=== PATIENT | female | born 1950 | race Two or more races ===

== ENCOUNTER 2017-08-11 19:03 | Inpatient (IN) | payer MEDICARE ==
[~2017-08-11] VITALS: Ht 165.1 cm; Wt 76.7 kg
[2017-08-11 22:20] VITALS: BP 169/81
[2017-08-11] MEDS ORDERED: DOCU100C36 PO (22:58)
[2017-08-11] MEDS ORDERED: HYDR-552 PO (22:58)
[2017-08-11] MEDS ORDERED: LORAZEPAM 0.5 MG TABLET PO PRN (23:00)
[2017-08-11] MEDS ORDERED: MAGNESIUM HYDROXIDE 30 ML UDC PO PRN (23:00)
[2017-08-11] MEDS ORDERED: MAG HYDROX/AL HYDROX/SIMETH 30 ML UDC PO PRN (23:00)
[2017-08-11] MEDS ORDERED: ACETAMINOPHEN 325 MG TABLET PO PRN (23:00)
--- NOTE | 2017-08-11 23:00 | NUR ---
GPS/CHIEF LIFESTYLE OFFICER ADMISSION NOTES: RECEIVED 67YR OLD FEMALE PT. ON A 5150 HOLD FOR DTS. PT. A/O X3. PT. GIVEN ADVISEMENT, ORIENTED TO UNIT POLICY AND PROTOCOLS AND ROUTINE. CONTRABAND AND BELONGINGS LOGGED AND TAKEN FROM PT. AND PLACED ON LOCKED CABINET AND SAFE. CALL ELIZABETH WITHIN REACH AND SAFETY ENVIRONMENT OBSERVED AT ALL TIMES. NO SI/HI AT THIS TIME. BED IN LOCKED POSITION. NO C/O PAIN OR DISCOMFORT AT THIS TIME. MEDICAL DR. HELMS AND PSYCH DR. LOPEZ NOTIFIED OF PT. ADMISSION TO UNIT. FAMILY NOTIFIED.
[2017-08-12 06:53] LABS: BASOPHILS % (AUTO) 0.5 % (0.0-2.0); HEMATOCRIT 37 % (33-45); HEMOGLOBIN 12.6 g/dL (11.5-14.8); LYMPHOCYTES # (AUTO) 1.2 /CMM (0.8-4.8); LYMPHOCYTES % (AUTO) 23.1 % (20.0-44.0); MEAN CORPUSCULAR HEMOGLOBIN 32 PG (26.0-33.0); MEAN CORPUSCULAR HGB CONC 34 g/dl (31.0-36.0); MEAN CORPUSCULAR VOLUME 94 fL (82-100); MONOCYTES # (AUTO) 0.7 /CMM (0.1-1.30); MONOCYTES % (AUTO) 13.8 % (2.0-12.0); NEUTROPHILS # (AUTO) 3.1 /CMM (1.8-8.9); NEUTROPHILS % (AUTO) 60.6 % (43.0-81.0); PLATELET COUNT (AUTO) 101 /CMM (150-450); RDW COEFFICIENT OF VARIATION 13.6 (11.5-15.0)
[2017-08-12 07:10] LABS: ALBUMIN 2.8 g/dL (3.4-5.0); BILIRUBIN,TOTAL 0.7 mg/dL (0.2-1.0); CALCIUM, SERUM 9.1 mg/dL (8.5-10.1); CREATININE 0.9 mg/dL (0.6-1.3); POTASSIUM 4.4 mmol/L (3.5-5.1); TOTAL PROTEIN, SERUM 6.5 g/dL (6.4-8.2)
[2017-08-12 07:29] LABS: CHOLESTEROL 181 mg/dL (<200); HDL CHOLESTEROL 93 mg/dL (40-60); LDL 78 mg/dL (0-99); TRIGLYCERIDES 45 mg/dL (30-150)
[2017-08-12 08:00] VITALS: BP 119/50
[2017-08-12 08:18] LABS: MAGNESIUM 1.7 mg/dL (1.8-2.4); PHOSPHORUS 4.2 mg/dL (2.5-4.9)
[2017-08-12 08:27] LABS: THYROID STIMULATING HORMONE 1.304 uIU/mL (0.358-3.74)
[2017-08-12] MEDS: DOCUSATE SODIUM 100 MG CAPSULE PO SCH ×2 (08:29→16:14)
[2017-08-12] MEDS ORDERED: LISI10TA5 PO (08:54)
[2017-08-12] MEDS ORDERED: MAGNESIUM OXIDE 400 MG TABLET PO ONE (10:30)
[2017-08-12] MEDS: ESCITALOPRAM OXALATE (10 MG) 10 MG TABLET PO SCH (11:53)
[2017-08-12 16:00] VITALS: BP 133/70
--- NOTE | 2017-08-12 17:56 | NUR ---
Initial Discharge Plan: Pt currently resides with her brother at [address] [place] [address] ([phone]). Per pt, she would like to return there until her niece finds her an apartment. SW will work with the pt and the MD regarding appropriate discharge plans. SW will form a safe and proper discharge plan.
[2017-08-12] MEDS: HYDROCODONE/APAP 5/325MG 1 EACH TABLET PO PRN (20:31)
--- NOTE | 2017-08-12 20:32 | NUR ---
PATIENT APPROACHED THE N. STATION, C/O PAIN RIGHT ARM AND RIGHT BREAST, 7/10 ON PAIN SCALE, NORCO TAB 5/325 MG TAB 1 PO GIVEN. SHE STATED THAT HER BLOOD PRESSURE IS INOCENTE BECAUSE HE IS UPSET, AFRAID AND NOT TRUSTING MALE DIRECTOR FUNERAL POINTING ON 2 MALE DIRECTOR FUNERAL WORKING TONIGHT. EXPLAINED TO HER THAT PAULO AND I WILL CHECK ON HER TONIGHT UNTIL 0730 AM SARIAH, NO MALE DIRECTOR FUNERAL WILL ENTER HER ROOM. PATIENT UNDERSTOOD INSTRUCTION. WENT TO BED.
[2017-08-12] MEDS: ZOLPIDEM TARTRATE 5 MG TABLET PO PRN (22:05)
[2017-08-12] MEDS: QUETIAPINE FUMARATE 25 MG TABLET PO SCH (22:05)
--- NOTE | 2017-08-12 22:06 | NUR ---
AMBIEN 5 MG TAB 1 PO GIVEN FOR SLEEP PER PATIENT'S REQUEST.
[2017-08-13 08:00] VITALS: BP 125/64
[2017-08-13] MEDS: ESCITALOPRAM OXALATE (10 MG) 10 MG TABLET PO SCH (08:05)
[2017-08-13] MEDS: DOCUSATE SODIUM 100 MG CAPSULE PO SCH ×3 (08:05→17:00)
--- NOTE | 2017-08-13 14:05 | NUR ---
AM RN NOTE Pt requesting for regular diet, called Dr. Brunson new order obtained noted and carried out.
[2017-08-13 16:00] VITALS: BP 131/75
[2017-08-13] MEDS: HYDROCODONE/APAP 5/325MG 1 EACH TABLET PO PRN (19:10)
[2017-08-13 20:00] VITALS: BP 150/88
[2017-08-13] MEDS: QUETIAPINE FUMARATE 25 MG TABLET PO SCH (22:27)
--- NOTE | 2017-08-14 00:27 | NUR ---
Pt has been anhedonic with flat affect & easily irritable but compliant/redirectable mostly.
[2017-08-14 08:00] VITALS: BP 143/89
[2017-08-14] MEDS: DOCUSATE SODIUM 100 MG CAPSULE PO SCH ×2 (08:36→16:13)
[2017-08-14] MEDS: ESCITALOPRAM OXALATE (10 MG) 10 MG TABLET PO SCH (08:36)
--- NOTE | 2017-08-14 13:00 | NUR ---
URINE SAMPLE COLLECTED AT CN REQUEST.
[2017-08-14 16:00] VITALS: BP 150/70
[2017-08-14 16:32] LABS: APPEARANCE,URINE CLEAR (CLEAR); BILIRUBIN,URINE NEGATIVE (NEGATIVE); BLOOD, URINE 2+ Ery/uL (NEGATIVE); COLOR,URINE YELLOW (YELLOW); KETONES,URINE NEGATIVE (NEGATIVE); LEUKOCYTE ESTERASE ,URINE 1+ (NEGATIVE); NITRITE, URINE NEGATIVE (NEGATIVE); PROTEIN,URINE NEGATIVE (NEGATIVE); UGLUCOSE NEGATIVE (NEGATIVE)
[2017-08-14 16:48] LABS: BACTERIA,URINE Few /HPF (None Seen); SQUAMOUS EPITHELIAL CELL,UR Moderate /HPF (None Seen)
--- NOTE | 2017-08-14 18:26 | NUR ---
RN CLOSING. PT RESTING IN BED READING. PT ENGAGING AND APPROPRIATE. PT CARING AND SUPPORTIVE OF OTHER CLIENTS WHEN IN COMMON AREA. ALL NURSE DUTIES ATTENDED TO AND PT WITHOUT CONCERN OR COMPLAINT AT THIS TIME.
[2017-08-14] MEDS: HYDROCODONE/APAP 5/325MG 1 EACH TABLET PO PRN (19:34)
[2017-08-14 20:22] VITALS: BP 157/66
[2017-08-14] MEDS: QUETIAPINE FUMARATE 25 MG TABLET PO SCH (21:14)
[2017-08-14 23:00] VITALS: BP 137/76
[2017-08-14] MEDS: SULFAMETH/TRIMETH 800/160 MG 1 UDTAB TABLET PO SCH (23:02)
[2017-08-15] MEDS: DOCUSATE SODIUM 100 MG CAPSULE PO SCH ×2 (08:24→16:12)
[2017-08-15] MEDS: ESCITALOPRAM OXALATE (10 MG) 10 MG TABLET PO SCH (08:26)
[2017-08-15] MEDS: SULFAMETH/TRIMETH 800/160 MG 1 UDTAB TABLET PO SCH ×2 (08:26→21:18)
[2017-08-15 08:48] VITALS: BP 149/75
--- NOTE | 2017-08-15 15:43 | NUR ---
gps keyseating machine set up operator: notes era fonseca (psychologist) here and interviewing pt at this time.
[2017-08-15 16:00] VITALS: BP 162/75
--- NOTE | 2017-08-15 19:30 | NUR ---
RN NOTES RECEIVED PATIENT IN BED AWAKE, AO X 3, ABLE TO MAKE NEEDS KNOWN. NO ACUTE DISTRESS NOTED. DENIES ANY PAIN AT THIS TIME. DENIES ANY SUICIDAL IDEATION. SAFETY REMINDERS GIVEN. ON LOW BED WITH BILATERAL UPPER SIDE RAILS UP. CALL ELIZABETH WITHIN EASY REACH. WILL CONTINUE TO MONITOR.
[2017-08-15 20:00] VITALS: BP 151/81
[2017-08-15] MEDS: QUETIAPINE FUMARATE 25 MG TABLET PO SCH (21:18)
[2017-08-15] MEDS: HYDROCODONE/APAP 5/325MG 1 EACH TABLET PO PRN (21:25)
--- NOTE | 2017-08-16 06:47 | NUR ---
RN NOTES PATIENT ASLEEP, EASILY AROUSABLE. RESPIRATIONS EVEN. NO SIGNS OF PAIN NOTED. DUE MED GIVEN WITH NO ASE NOTE. NEEDS ATTENDED. KEPT CLEAN, DRY, AND COMFORTABLE. SAFETY PRECAUTIONS AND COMFORT MEASURES IN PLACE. WILL GIVE REPORT TO DAY SHIFT FOR CONTINUITY OF CARE.
[2017-08-16] MEDS: DOCUSATE SODIUM 100 MG CAPSULE PO SCH ×2 (09:00→16:09)
[2017-08-16 09:04] VITALS: BP 151/76
[2017-08-16] MEDS: SULFAMETH/TRIMETH 800/160 MG 1 UDTAB TABLET PO SCH ×2 (09:20→21:27)
[2017-08-16] MEDS: ESCITALOPRAM OXALATE (10 MG) 10 MG TABLET PO SCH (09:20)
--- NOTE | 2017-08-16 10:24 | NUR ---
KISHA spoke to Scottie who is an RN at the [facility] about the pt missing an important appointment yesterday. KISHA will figure out a plan for the pt to continue her medical treatment.
--- NOTE | 2017-08-16 10:27 | NUR ---
KISHA called Erlinda ([phone]) at [facility] and left a voicemail about referring this pt.
--- NOTE | 2017-08-16 10:28 | NUR ---
SW called pt's brother, Otis ([phone]), and discussed the SW's current plan of transferring the pt to a SNF in [place]. The pt's brother then stated that he would be able to take the pt to her doctor's appointments from the facility.
[2017-08-16 16:00] VITALS: BP 148/80
--- NOTE | 2017-08-16 16:09 | NUR ---
GPS/RN PATIENT REFUSED COLACE BID DURING SHIFT.
--- NOTE | 2017-08-16 20:40 | NUR ---
GPS-RN PATIENT IS FEELING ANXIOUS AND REQUESTING FOR ATIVAN. VSS. ADMINISTERED ATIVAN 1MG PO ORDERED. WILL CONTINUE TO MONITOR.
[2017-08-16] MEDS: QUETIAPINE FUMARATE 25 MG TABLET PO SCH (21:27)
[2017-08-16] MEDS: HYDROCODONE/APAP 5/325MG 1 EACH TABLET PO PRN (22:10)
--- NOTE | 2017-08-16 22:10 | NUR ---
GPS-RN PATIENT C/O RIGHT BREAST PAIN RADIATING TO RIGHT SHOULDER ON A PAIN SCALE OF 7/10. ADMINISTERED NORCO 5/325MG PO ORDERED. WILL CONTINUE TO MONITOR.
[2017-08-17 08:00] VITALS: BP 129/68
[2017-08-17] MEDS: ESCITALOPRAM OXALATE (10 MG) 10 MG TABLET PO SCH (09:22)
[2017-08-17] MEDS: DOCUSATE SODIUM 100 MG CAPSULE PO SCH ×3 (09:22→17:34)
[2017-08-17] MEDS: SULFAMETH/TRIMETH 800/160 MG 1 UDTAB TABLET PO SCH ×2 (09:22→21:48)
[2017-08-17 16:33] VITALS: BP 140/75
--- NOTE | 2017-08-17 19:30 | NUR ---
GPS RN NOTE, RECEIVED PATIENT AWAKE AND IN BED, PATIENT HAS A COMPLAINT OF RIGHT BREASTS PAIN AT 8 OUT OF 10 AT THE PAIN . PATIENT IS DISPLAYING NO S/S OF APPARENT DISTRESS AT THIS TIME. PATIENT BREATHING IS UNLABORED WITH EQUAL RISE AND FALL OF THE CHEST. PATIENT IS ALERT AND ORIENTED X 3 ON ROOM AIR WITH A SPO2 95%. PATIENT IS MED COMPLIANT, DISORGANIZED, CONFUSED AT TIMES, AND NEEDS CONSTANT REORIENTATION. PATIENT DENIES SUICIDE IDEATIONS AND HOMICIDAL IDEATIONS AT THIS TIME. PATIENT ASSISTED WITH TURNING AND REPOSITIONING Q2 HR AND PRN FOR COMFORT AND CIRCULATION. PATIENT HAS NO NEEDS AT THIS TIME. PATIENT EDUCATED ON THE USE OF THE CALL ELIZABETH. PATIENT BED SIDE RAILS UP X 2 FOR SAFETY, BED LOCKED AND LOW WILL CONTINUE TO MONITOR AND MAINTAIN SAFETY Q15 MIN WITH THE HELP OF STAFF.
[2017-08-17] MEDS: HYDROCODONE/APAP 5/325MG 1 EACH TABLET PO PRN (20:00)
--- NOTE | 2017-08-17 20:00 | NUR ---
GPS RN NOTE, PATIENT HAS A COMPLAINT OF RIGHT BREAST PAIN AT 8 OUT 10 ON THE PAIN SCALE. PATIENT VITAL SIGNS ARE STABLE. GAVE NORCO 5-325 1 TAB PO TID PRN ORDERED. WILL REASSESS PAIN AND I WILL CONTINUE TO MONITOR THIS PATIENT.
[2017-08-17 20:22] VITALS: BP 157/86
[2017-08-17] MEDS: QUETIAPINE FUMARATE 25 MG TABLET PO SCH (21:48)
[2017-08-18 08:00] VITALS: BP 124/70
[2017-08-18] MEDS: DOCUSATE SODIUM 100 MG CAPSULE PO SCH ×2 (08:30→16:25)
[2017-08-18] MEDS: ESCITALOPRAM OXALATE (10 MG) 10 MG TABLET PO SCH (08:30)
[2017-08-18] MEDS: HYDROCODONE/APAP 5/325MG 1 EACH TABLET PO PRN (08:34)
--- NOTE | 2017-08-18 10:24 | NUR ---
SW spoke to Erlinda ([phone]) from [facility] and faxed a referral to [phone].
--- NOTE | 2017-08-18 10:25 | NUR ---
KISHA spoke to Mandie ([phone]) from [facility] and faxed a referral to [phone].
--- NOTE | 2017-08-18 11:19 | NUR ---
Mandie ([phone]) from [facility] called the SW and stated that the pt was not accepted to their facility. She then provided the SW with a suggestion.
--- NOTE | 2017-08-18 12:50 | NUR ---
SW spoke to Erlinda ([phone]) from [facility] who stated that the pt was denied due to certain requirements for SNFs.
--- NOTE | 2017-08-18 12:50 | NUR ---
SW reached out to Reynaldo ([phone]) who assists with placements for this pt.
[2017-08-18 16:00] VITALS: BP 145/89
[2017-08-18 20:00] VITALS: BP 160/90
[2017-08-18] MEDS: LATANOPROST EYE DROP 0.005% 2.5 ML BOTTLE EACHEYE SCH (20:51)
[2017-08-18] MEDS: QUETIAPINE FUMARATE 25 MG TABLET PO SCH (20:51)
[2017-08-18] MEDS: ZOLPIDEM TARTRATE 5 MG TABLET PO PRN (22:02)
[2017-08-19 08:00] VITALS: BP 134/74
[2017-08-19] MEDS: ESCITALOPRAM OXALATE (10 MG) 10 MG TABLET PO SCH (09:10)
[2017-08-19] MEDS: DOCUSATE SODIUM 100 MG CAPSULE PO SCH ×2 (09:10→17:44)
[2017-08-19] MEDS: BRIMONIDINE TARTRATE OPHT SOLN 5 ML BOTTLE EACHEYE SCH ×2 (11:03→17:44)
[2017-08-19] MEDS: HYDROCODONE/APAP 5/325MG 1 EACH TABLET PO PRN (12:53)
--- NOTE | 2017-08-19 12:53 | NUR ---
RN NOTES ADMINISTERED NARCO 5/325 MG PO PRN FOR RIGHT BREAST PAIN 09/30 PER PATIENT REQUEST, V/S TAKEN BP-130/70, P-70, ENCOURAGED TO INCREASE FLUID INTAKE. CONTINUED MONITORING.
--- NOTE | 2017-08-19 15:12 | NUR ---
Frank from [facility] came to assess the pt and figure out what her budget is like.
--- NOTE | 2017-08-19 15:17 | NUR ---
KISHA contacted Suzanna ([phone]) from a [facility] regarding this pt.
--- NOTE | 2017-08-19 15:30 | NUR ---
RN NOTES GET PATHOLOGY RESULT FROM [facility], AND FAXED TO DR VINCENT.
[2017-08-19 16:00] VITALS: BP 104/58
[2017-08-19 20:00] VITALS: BP 112/61
[2017-08-19] MEDS: LATANOPROST EYE DROP 0.005% 2.5 ML BOTTLE EACHEYE SCH (22:14)
[2017-08-19] MEDS: QUETIAPINE FUMARATE 25 MG TABLET PO SCH (22:14)
[2017-08-19] MEDS: HYDROCODONE/APAP 10/325MG 1 EA TABLET PO PRN (22:15)
[2017-08-19] MEDS: ZOLPIDEM TARTRATE 5 MG TABLET PO PRN (22:15)
[2017-08-20 08:00] VITALS: BP 118/60
[2017-08-20] MEDS: ESCITALOPRAM OXALATE (10 MG) 10 MG TABLET PO SCH (08:27)
[2017-08-20] MEDS: DOCUSATE SODIUM 100 MG CAPSULE PO SCH ×2 (08:28→16:04)
[2017-08-20] MEDS: BRIMONIDINE TARTRATE OPHT SOLN 5 ML BOTTLE EACHEYE SCH ×2 (08:31→16:04)
[2017-08-20] MEDS: ANASTROZOLE 1 MG TABLET PO SCH (14:36)
[2017-08-20 16:00] VITALS: BP 102/59
[2017-08-20 20:00] VITALS: BP 96/59
[2017-08-20] MEDS: LATANOPROST EYE DROP 0.005% 2.5 ML BOTTLE EACHEYE SCH (21:14)
[2017-08-20] MEDS: QUETIAPINE FUMARATE 25 MG TABLET PO SCH (21:14)
[2017-08-20] MEDS: HYDROCODONE/APAP 10/325MG 1 EA TABLET PO PRN (21:30)
[2017-08-21] MEDS: ZOLPIDEM TARTRATE 5 MG TABLET PO PRN (00:37)
[2017-08-21 08:00] VITALS: BP 129/85
[2017-08-21] MEDS: DOCUSATE SODIUM 100 MG CAPSULE PO SCH ×2 (08:30→16:37)
[2017-08-21] MEDS: ESCITALOPRAM OXALATE (10 MG) 10 MG TABLET PO SCH (08:30)
[2017-08-21] MEDS: ANASTROZOLE 1 MG TABLET PO SCH (08:30)
[2017-08-21] MEDS: BRIMONIDINE TARTRATE OPHT SOLN 5 ML BOTTLE EACHEYE SCH ×2 (08:39→17:45)
--- NOTE | 2017-08-21 09:28 | NUR ---
GPS RN NOTES: RECEIVED PATIENT IN BED ASLEEP BUT AROUSABLE TO NAME, AO X 3, ABLE TO MAKE NEEDS KNOWN. NO ACUTE DISTRESS NOTED. DENIES ANY PAIN AT THIS TIME. DENIES ANY SUICIDAL IDEATION. PATIENT UP ONLY FOR BREAKFAST WAS MED COMPLIANT, THEN BACK TO BED SAYING NEEDS MORE SLEEP. SAFETY REMINDERS GIVEN. ON LOW BED WITH BILATERAL UPPER SIDE RAILS UP. CALL ELIZABETH WITHIN EASY REACH. WILL CONTINUE TO MONITOR Q 15 MINUTES FOR SAFETY AND COMFORT.
--- NOTE | 2017-08-21 11:10 | NUR ---
GPS RN NOTE: PATIENT BECAME AGITATED IN DAY ROOM BECAUSE SHE WANTED TV TURNED DOWN AND TOOK REMOTE FROM INFORMATION SECURITY SYSTEMS INSTRUCTOR AND REFUSED TO GIVE BACK THEN THREW ON FLOOR AND WAS VERBALLY ABUSIVE WITH VAGUE THREATS TO DR. CLAYTON TO ANY STAFF WHO TRIED TO GIVE HER MEDICATION. 1: 1 FOR FIVE MINUTES WITH PATIENT TO ALLOW PATIENT TO VERBALIZE FEELINGS AND CONCERNS, PATIENT BECAME CALM AND APOLOGETIC, REFUSED PRN ATIVAN. SHE APOLOGIZED TO STAFF AND TO DR. CLAYTON FOR HER OUTBURST. ASKED PATIENT TO SPEAK TO RN IF SHE BEGINS TO FEEL AGITATED AGAIN AND WILL NOTIFY DR. CLAYTON IF BEHAVIOR CONTINUES. AT THIS TIME PATIENT IN DAY ROOM CALMLY WATCHING TV.
--- NOTE | 2017-08-21 11:35 | NUR ---
DR. CLAYTON REQUESTS TO BE NOTIFIED IF PATIENT HAS ANY FURTHER ANGRY OUTBURSTS WITH STAFF.
[2017-08-21 16:03] VITALS: BP 124/64
[2017-08-21] MEDS: HYDROCODONE/APAP 10/325MG 1 EA TABLET PO PRN (18:51)
[2017-08-21 20:33] VITALS: BP 110/61
[2017-08-21] MEDS: QUETIAPINE FUMARATE 25 MG TABLET PO SCH (21:07)
[2017-08-21] MEDS: LATANOPROST EYE DROP 0.005% 2.5 ML BOTTLE EACHEYE SCH (21:08)
--- NOTE | 2017-08-22 06:39 | NUR ---
GPS-RN AT AROUND 6:30AM NAVAL SURFACE FIRE SUPPORT PLANNER ASSIGNED FOUND THE PATIENT LYING ON THE FLOOR AT THE HALLWAY OUTSIDE THE NURSES'S STATION. WHEN ASKED WHAT HAPPENED PATIENT STATED "I DIDN'T HIT MY HEAD ON THE FLOOR". PHYSICAL ASSESSMENT DONE, ACTIVE RANGE OF MOTION SATISFACTORY ABLE TO MOVE UPPER AND LOWER EXTREMITIES. PATIENT GOT UP WITH ASSISTANCE NO BRUISES, NO SWELLING NOTED. SKIN INTACT. DENIES ANY PAIN. V/S TAKEN BP 122/84, DC 87, R18. T98.8 O2 SATURATION @99%. NURSE CASH RECONCILIATION SPECIALIST SRIDEVI MADE AWARE AND DR. GUERIN WAS NOTIFIED WITH NO NEW ORDER. NO FAMILY MEMBER GIVEN PER CHART. UNABLE TO REPORT INCIDENT. MAINTAINED FALL PRECAUTION. BED LOCKED AND PLACED ON LOWEST POSITION. SIDE RAILS UP. KEPT BED ALARM ON AT ALL TIMES. INSTRUCTED PATIENT TO CALL FOR HELP WHEN HE NEEDS IT. 1:1 SITTER ORDERED FOR SAFETY. WILL CONTINUE TO MONITOR FOR SAFETY AND BEHAVIOR. Addendum: 08/22/17 at 0654 by JOHNNY SANDY RN WRONG PATIENT Addendum: 08/22/17 at 0739 by JOHNNY SANDY RN WRONG CHARTING/ DISREGARD THIS CHARTING
[2017-08-22 08:00] VITALS: BP 113/64
[2017-08-22] MEDS: DOCUSATE SODIUM 100 MG CAPSULE PO SCH ×2 (08:35→16:36)
[2017-08-22] MEDS: ESCITALOPRAM OXALATE (10 MG) 10 MG TABLET PO SCH (08:35)
[2017-08-22] MEDS: ANASTROZOLE 1 MG TABLET PO SCH (08:35)
[2017-08-22] MEDS: BRIMONIDINE TARTRATE OPHT SOLN 5 ML BOTTLE EACHEYE SCH ×2 (08:36→17:18)
--- NOTE | 2017-08-22 10:54 | NUR ---
Suzanna ([phone]) from [facility] informed the SW that she was unable to visit the pt over the weekend. She stated that she would take the pt at $900 a month and that her payments would have to be automatic. She is approved to go there tomorrow.
--- NOTE | 2017-08-22 10:58 | NUR ---
KISHA called the pt's niece, Sincere ([phone]), and left a message asking her to call back because there is information to discuss about her aunt's discharge plan.
--- NOTE | 2017-08-22 10:59 | NUR ---
SW called Dr. Mtz ([phone]) and discussed the pt's treatment options. The doctor then discussed that she would continue to treat her if the SW can find her placement in the [place] area.
--- NOTE | 2017-08-22 12:21 | NUR ---
Sincere ([phone]), the pt's niece, called the SW back and let her know that the aunt can reside with her in [place].
[2017-08-22 16:00] VITALS: BP 128/71
[2017-08-22 21:02] VITALS: BP_SYST 129; BP_SYST 147; BP_DIAS 119; BP_DIAS 62
[2017-08-22] MEDS: ZOLPIDEM TARTRATE 5 MG TABLET PO PRN (22:06)
[2017-08-22] MEDS: QUETIAPINE FUMARATE 25 MG TABLET PO SCH (22:06)
[2017-08-22] MEDS: LATANOPROST EYE DROP 0.005% 2.5 ML BOTTLE EACHEYE SCH (22:07)
[2017-08-23 08:00] VITALS: BP 148/88
[2017-08-23] MEDS: ESCITALOPRAM OXALATE (10 MG) 10 MG TABLET PO SCH (08:08)
[2017-08-23] MEDS: ANASTROZOLE 1 MG TABLET PO SCH (08:08)
[2017-08-23] MEDS: DOCUSATE SODIUM 100 MG CAPSULE PO SCH ×2 (08:09→16:22)
[2017-08-23] MEDS: BRIMONIDINE TARTRATE OPHT SOLN 5 ML BOTTLE EACHEYE SCH ×2 (08:40→16:22)
--- NOTE | 2017-08-23 10:00 | NUR ---
KISAH called [facility] and was referred to the physicians referral department. KISHA spoke to them and received three referrals for the pt.
--- NOTE | 2017-08-23 10:02 | NUR ---
KISHA called Dr. Rahul Church's office ([phone]) and referred the pt. KISHA will fax over the referral to [phone].
--- NOTE | 2017-08-23 10:04 | NUR ---
RN Scottie from [facility] ([phone]) called the SW and stated that he will fax over the pt's pathology reports to the SW so she can continue with her referrals. He stated that her cancer is treatable with the right steps and that is the reason why they were pushing for her to continue with them but other places should be able to do it as well.
--- NOTE | 2017-08-23 10:26 | NUR ---
KISHA and the psychiatrist, Dr. Hinson, went to speak to the pt and discussed that she would leave today to [place] to live with her niece and encouraged her to follow up with doctors there for her treatment.
--- NOTE | 2017-08-23 10:28 | NUR ---
SW will provide oncology referrals for the pt.
--- NOTE | 2017-08-23 10:31 | NUR ---
KISHA spoke to her line crew supervisor, Kari aMrio, who stated that we can provide a taxi to the [facility] station and from there the pt can go to [place].
--- NOTE | 2017-08-23 11:00 | NUR ---
Pt told the SW that she is getting her own place to stay at in [place] and now the discharge has been set for .
--- NOTE | 2017-08-23 15:32 | NUR ---
KISHA spoke to the pt's son, Kade Alvarez ([phone]), and he stated that he would call back with the concrete address of where she will be staying on .
[2017-08-23 16:00] VITALS: BP 119/67
[2017-08-23 20:19] VITALS: BP 134/62
[2017-08-23] MEDS: QUETIAPINE FUMARATE 25 MG TABLET PO SCH (21:09)
[2017-08-23] MEDS: HYDROCODONE/APAP 10/325MG 1 EA TABLET PO PRN (21:09)
[2017-08-23] MEDS: LATANOPROST EYE DROP 0.005% 2.5 ML BOTTLE EACHEYE SCH (21:12)
[2017-08-23] MEDS ORDERED: LATANOPROST EYE DROP 0.005% 2.5 ML BOTTLE ONE (22:14)
--- NOTE | 2017-08-23 22:15 | NUR ---
GPS RN NOTE: PATIENT COMPLAINS OF PAIN 7/10 TO BACK, NORCO 10/325MG 1 TAB ORAL GIVEN PER MD ORDER. WILL CONTINUE TO MONITOR.
[2017-08-24 08:00] VITALS: BP 105/57
[2017-08-24] MEDS: DOCUSATE SODIUM 100 MG CAPSULE PO SCH ×3 (09:00→17:00)
[2017-08-24] MEDS: BRIMONIDINE TARTRATE OPHT SOLN 5 ML BOTTLE EACHEYE SCH ×2 (09:00→17:19)
[2017-08-24] MEDS: ANASTROZOLE 1 MG TABLET PO SCH (09:02)
[2017-08-24] MEDS: ESCITALOPRAM OXALATE (10 MG) 10 MG TABLET PO SCH (09:02)
[2017-08-24 17:08] VITALS: BP 113/61
[2017-08-24 20:44] VITALS: BP 101/58
[2017-08-24] MEDS: LATANOPROST EYE DROP 0.005% 2.5 ML BOTTLE EACHEYE SCH (21:38)
[2017-08-24] MEDS: QUETIAPINE FUMARATE 25 MG TABLET PO SCH (21:39)
[2017-08-24] MEDS: HYDROCODONE/APAP 10/325MG 1 EA TABLET PO PRN (22:07)
[2017-08-25 07:20] LABS: ALBUMIN 2.5 g/dL (3.4-5.0); BILIRUBIN,TOTAL 0.4 mg/dL (0.2-1.0); CALCIUM, SERUM 8.7 mg/dL (8.5-10.1); CREATININE 0.9 mg/dL (0.6-1.3); POTASSIUM 4.2 mmol/L (3.5-5.1)
[2017-08-25 08:00] VITALS: BP 116/60
[2017-08-25] MEDS: ESCITALOPRAM OXALATE (10 MG) 10 MG TABLET PO SCH (08:20)
[2017-08-25] MEDS: BRIMONIDINE TARTRATE OPHT SOLN 5 ML BOTTLE EACHEYE SCH (08:20)
[2017-08-25] MEDS: DOCUSATE SODIUM 100 MG CAPSULE PO SCH ×2 (08:20→08:23)
[2017-08-25] MEDS: ANASTROZOLE 1 MG TABLET PO SCH (08:20)
--- NOTE | 2017-08-25 08:38 | NUR ---
KISHA called the pt's son, Kade Alvarez ([phone]), and he stated that he would call back in a little bit with the address that the pt will be staying at.
--- NOTE | 2017-08-25 09:39 | NUR ---
Dr. Hinson gave an order to d/c hold and d/c today and to follow up with psych and medical doctors. Pt. without distress, denies suicidal and homicidal.
--- NOTE | 2017-08-25 12:13 | NUR ---
JOE CARSON MADE AWARE OF THE DISCHARGE AND SAID OK FOR DISCHARGE. EQUIPMENT CLEANER AND TESTER RECONCILED AND WROTE PRESCRIPTIONS. PT. SIGNED THE DISCHARGE PAPERS, BELONGINGS READY, REFUSED FOR SKIN PICTURE, INSTRUCTED ON MEDS TO CONTINUE AT HOME AND VERBALIZES UNDERSTANDING AND ADVISED TO MAKE A FOLLOW UP WITH PSYCH AND MEDICAL DOCTORS AND AGREED.
--- NOTE | 2017-08-25 12:16 | NUR ---
Pt stated that she will be staying with her niece, Sincere ([phone]) for a couple of days and that her son is looking for a more permanent option for her.
--- NOTE | 2017-08-25 12:17 | NUR ---
Oralia ([phone]) called the SW from the pharmacy and stated that the pt cannot be discharged until there is a medical appointment set up. SW stated that she would make one.
--- NOTE | 2017-08-25 12:18 | NUR ---
KISHA called Dr. Rahul Church's office ([phone]) and made an appointment for the pt for August 29 at 10:15AM. KISHA provided the office with the niece's phone number to ensure that the pt goes to her appointment.
--- NOTE | 2017-08-25 12:19 | NUR ---
KISHA called Oralia ([phone]) and updated her about the appointment that was made for the pt.
--- NOTE | 2017-08-25 13:00 | NUR ---
Pt. left the unit via a taxi with belongings and escorted by staff to the lobby. Left without distress, ambulatory and on stable condition. V/S taken: BP 132/78, OR 82, RR 18, Temp 98.2 and oxygen sat of 100%.
--- NOTE | 2017-08-25 13:45 | NUR ---
Discharge Note: Pt was discharged to Sinceres (niece) home located at [address], [address], [place], [place] [address]. Sincere approved this discharge plan of having her aunt live with her and she can be reached at . Pts son, Kade Alvarez ([phone]), will find a more permanent option for his mother. Pt took a taxi to the [facility] [place] [address] [place] [address] to [place], [place] which will cost her approximately $54 which the pt states she has on her credit card. Pt will be picked up at the train station by her niece, Sincere. Upon discharge, the pt presented at well-groomed and appropriately dressed. Her mood was excited and her affect was normal. Pt was provided with three substance use referrals in the [place] area at her discharge. also referred the pt and made an appointment with the body art technician, Dr. Rahul Church, located at [address] [place] [id number]; and the appointment was set up for 08/29/17 at 10:15AM. Pt was also referred to a psychiatrist, Dr. Hector Nolasco, located at [address] [place] [address]; . [place] [facility] [address], [place] [address] [facility] [address] [place] [address] [facility] [address], [place], [place] [id number]
== END 2017-08-25 13:00 | disposition home or self-care (01) | DRG 885 ==
LOC: GPS 22:10
PROVIDERS: ADMIT Psychiatry & Neurology Psychiatry; ATTEND Family Medicine
DX: F32.3 Major depressive disorder, single episode, severe with psychotic features (principal); F23 Brief psychotic disorder; R45.851 Suicidal ideations; C77.9 Secondary and unspecified malignant neoplasm of lymph node, unspecified; C79.2 Secondary malignant neoplasm of skin; E44.1 Mild protein-calorie malnutrition; F43.21 Adjustment disorder with depressed mood; Z88.0 Allergy status to penicillin; C50.919 Malignant neoplasm of unspecified site of unspecified female breast; I10 Essential (primary) hypertension; F41.9 Anxiety disorder, unspecified; R74.0 Nonspecific elevation of levels of transaminase and lactic acid dehydrogenase [LDH]; E78.5 Hyperlipidemia, unspecified; Z68.28 Body mass index [BMI] 28.0-28.9, adult
CPT/HCPCS: 36415; 80053-TC; 80061-TC; 81000-TC; 82962-TC; 83735-TC; 84100-TC; 84443-TC; 85025-TC; 86300; 87086-TC